=== PATIENT | male | born 1955 | race Caucasian/White ===

== ENCOUNTER 2020-10-26 10:44 | Outpatient (REF) | payer MEDICARE, SELFPAY ==
[2020-10-26 11:09] LABS: MANUAL DIFF FLAG NO
[2020-10-26 11:13] LABS: Basophils Absolute Auto 0.1 X10*3/uL (0.0-0.2); Basophils Percent Auto 0.7 % (0-2); Eosinophils Absolute Auto 0.2 X10*3/uL (0.0-0.4); Eosinophils Percent Auto 2.2 % (0-4); Hematocrit 49.2 % (42-52); Hemoglobin 16.9 g/dl (14.0-18.0); Imm Gran Abs Auto 0.02 X10*3/uL (0.00-0.03); Imm Gran Pct Auto 0.2 % (0.0-0.4); Lymphocytes Percent Auto 33.9 % (20-40); Mean Corpuscular HGB Conc 34.3 g/dl (31.0-36.0); Mean Corpuscular Hemoglobin 31.9 pg (27.0-33.0); Mean Platelet Volume 10.6 fL (9.4-12.4); Monocytes Absolute Auto 0.7 X10*3/uL (0.1-1.2); Monocytes Percent Auto 7.6 % (2-11); Neutrophils Percent Auto 55.4 % (45-73); Platelet Count 197 X10*3/uL (160-400); Red Blood Count 5.29 X10*6/uL (4.60-5.80); Red Cell Distribution Width 12.4 % (11.0-16.0)
[2020-10-26 11:27] LABS: Estimated Average Glucose 126 mg/dL
[2020-10-26 12:10] LABS: Alanine Aminotransferase 37 U/L (0-40); Albumin Level 4.5 g/dL (3.5-5.0); Alkaline Phosphatase 85 U/L (39-117); Anion Gap 13 (12-20); Aspartate Amino Transferase 33 U/L (5-37); Bilirubin Total 0.6 mg/dL (0.0-1.0); Blood Urea Nitrogen 13 mg/dL (9-16); Calcium 9.3 mg/dL (8.4-10.2); Carbon Dioxide 25 mmol/L (22-29); Chloride 104 mmol/L (96-108); Cholesterol 162 mg/dL; Estimated Glomerular Filt Rate > 60; Glucose Fasting 110 mg/dL (60-99); HDL Cholesterol 31 mg/dL; LDL Cholesterol Calculated 91 mg/dl; Potassium 4.5 mmol/L (3.3-5.1); Sodium 137 mmol/L (135-145); Total Protein 6.9 g/dL (6.5-8.0); Triglycerides 201 mg/dL
[2020-10-26 13:24] LABS: Prostate Specific Antigen 0.43 ng/mL (<0.05-4.0)
[2020-10-26 13:36] LABS: Glucose Urine UA NEG (NEG); Leukocyte Esterase Urine NEG (NEG); Nitrite Urine NEG (NEG); PH 5.5 (5.0-8.0); Specific Gravity - Urine >= 1.030 (1.005-1.025); Urine Blood TRACE (NEG); Urine Ketones NEG (NEG); Urine Protein NEG (NEG-TRACE)
[2020-10-26 13:45] LABS: Appearance Urine CLEAR; Color Urine YELLOW
[2020-10-26 13:57] LABS: Creatinine Urine 212.46 mg/dL; Microalbum/Creatinine Ratio Ur 30.1 ug/mg cr
[2020-10-26 14:08] LABS: Mucus Urine TRACE /LPF; RBC Urine 0-2 /HPF (0); Squamous Epithelial Cell Urine TRACE /LPF; WBC Urine 0 /HPF (0-4)
== END 2020-10-26 10:45 | disposition home or self-care (01) ==
LOC: HO.10HDL 10:44
PROVIDERS: Visit Provider Internal Medicine
DX: Z00.00 Encounter for general adult medical examination without abnormal findings (principal); I10 Essential (primary) hypertension; E78.00 Pure hypercholesterolemia, unspecified; R73.03 Prediabetes
CPT/HCPCS: 36415; 80053; 80061; 81001; 82043; 83036; 84153; 85025

== ENCOUNTER 2021-10-04 09:44 | Outpatient (REF) | payer MEDICARE, SELFPAY ==
[2021-10-04 10:54] LABS: Estimated Average Glucose 134 mg/dL; Hemoglobin A1c % 6.3 %
[2021-10-04 11:06] LABS: Anion Gap 12 (12-20); Blood Urea Nitrogen 10 mg/dL (9-16); Calcium 9.5 mg/dL (8.4-10.2); Carbon Dioxide 28 mmol/L (22-29); Chloride 103 mmol/L (96-108); Estimated Glomerular Filt Rate > 60; Glucose Fasting 134 mg/dL (60-99); Potassium 4.3 mmol/L (3.3-5.1); Sodium 139 mmol/L (135-145)
== END 2021-10-04 09:45 | disposition home or self-care (01) ==
LOC: HO.10HDL 09:44
PROVIDERS: Visit Provider Internal Medicine
DX: I10 Essential (primary) hypertension (principal); R73.03 Prediabetes
CPT/HCPCS: 36415; 80048; 83036

== ENCOUNTER 2023-06-17 10:20 | Outpatient (REF) | payer MEDICARE, SELFPAY ==
[2023-06-17 10:43] LABS: MANUAL DIFF FLAG NO
[2023-06-17 10:48] LABS: Basophils Absolute Auto 0.1 X10*3/uL (0.0-0.2); Basophils Percent Auto 0.7 % (0-2); Eosinophils Absolute Auto 0.2 X10*3/uL (0.0-0.4); Imm Gran Abs Auto 0.02 X10*3/uL (0.00-0.03); Imm Gran Pct Auto 0.2 % (0.0-0.4); Lymphocytes Percent Auto 25.2 % (20-40); Mean Corpuscular HGB Conc 33.3 g/dl (31.0-36.0); Mean Corpuscular Hemoglobin 30.9 pg (27.0-33.0); Mean Corpuscular Volume 92.6 fL (80.0-98.0); Mean Platelet Volume 10.1 fL (9.4-12.4); Monocytes Absolute Auto 0.6 X10*3/uL (0.1-1.2); Monocytes Percent Auto 7.8 % (2-11); Neutrophils Absolute Auto 5.1 x10*3/uL (2.0-8.3); Neutrophils Percent Auto 63.1 % (45-73); Platelet Count 175 X10*3/uL (160-400); Red Blood Count 5.51 X10*6/uL (4.60-5.80); White Blood Count 8.1 X10*3/uL (4.8-10.8)
[2023-06-17 11:02] LABS: Estimated Average Glucose 103 mg/dL; Hemoglobin A1c % 5.2 % (<6.0)
[2023-06-17 12:07] LABS: Alanine Aminotransferase 54 U/L (0-40); Albumin Level 3.2 g/dL (3.5-5.0); Alkaline Phosphatase 422 U/L (39-117); Anion Gap 12 (12-20); Aspartate Amino Transferase 116 U/L (5-37); Bilirubin Total 1.2 mg/dL (0.0-1.0); Blood Urea Nitrogen 11 mg/dL (9-16); Carbon Dioxide 22 mmol/L (22-29); Chloride 108 mmol/L (96-108); Cholesterol 150 mg/dL (<200); Estimated Glomerular Filt Rate > 60; Glucose Fasting 106 mg/dL (60-99); HDL Cholesterol 24 mg/dL (>40); LDL Cholesterol Calculated 95 mg/dL (<100); Potassium 4.2 mmol/L (3.3-5.1); Sodium 138 mmol/L (135-145); Total Protein 7.6 g/dL (6.5-8.0); Triglycerides 159 mg/dL (<150)
[2023-06-17 12:22] LABS: Prostate Specific Antigen Scr 0.46 ng/mL (<0.05-4.0)
[2023-06-17 13:12] LABS: Appearance Urine Turbid; Color Urine Dark Yellow; Glucose Urine UA Negative (Negative); Leukocyte Esterase Urine Trace (Negative); Nitrite Urine Negative (Negative); UMIC TRIGGER UA YES; Urine Blood Negative (Negative); Urine Ketones Negative (Negative); Urine Protein Trace mg/dL (Neg-Trace)
[2023-06-17 13:16] LABS: Bacteria Urine None Seen (None Seen); Squamous Epithelial Cell Urine 0-2 /HPF (0-2); WBC Urine 0-5 /HPF (0-5)
[2023-06-17 14:00] LABS: Creatinine Urine 208.47 mg/dL; Microalbum/Creatinine Ratio Ur 10.5 ug/mg cr (<30)
== END 2023-06-17 10:21 | disposition home or self-care (01) ==
LOC: HO.10HDL 10:20
PROVIDERS: Visit Provider Internal Medicine
DX: Z12.5 Encounter for screening for malignant neoplasm of prostate (principal); I10 Essential (primary) hypertension; E78.00 Pure hypercholesterolemia, unspecified; R73.03 Prediabetes
CPT/HCPCS: 36415; 80053; 80061; 81001; 82043; 82570; 83036; 84153; 85025

== ENCOUNTER 2023-06-26 12:01 | Outpatient (REF) | payer MEDICARE, SELFPAY ==
[2023-06-26 14:12] LABS: Alanine Aminotransferase 48 U/L (0-40); Albumin Level 3.3 g/dL (3.5-5.0); Alkaline Phosphatase 485 U/L (39-117); Aspartate Amino Transferase 123 U/L (5-37); Bilirubin Direct 0.9 mg/dL (0.0-0.5); Bilirubin Total 1.8 mg/dL (0.0-1.0); Total Protein 7.9 g/dL (6.5-8.0)
== END 2023-06-26 12:02 | disposition home or self-care (01) ==
LOC: HO.10HDL 12:01
PROVIDERS: Visit Provider Internal Medicine
DX: R79.89 Other specified abnormal findings of blood chemistry (principal)
CPT/HCPCS: 36415; 80076

== ENCOUNTER 2023-07-08 09:12 | Outpatient (REF) | payer MEDICARE, SELFPAY ==
--- NOTE | ~2023-07-08 | US_ITS ---
EXAMINATION: US ABDOMEN COMPLETE CLINICAL INFORMATION: Abnormal LFTs. COMPARISON: None available. TECHNIQUE: Real-time imaging of the abdominal viscera. Limited visualization due to bowel gas. FINDINGS: PANCREAS: Limited visualization of pancreatic tail and head. Imaged portion of pancreatic body is unremarkable. ABDOMINAL AORTA: Limited visualization. INFERIOR VENA CAVA: Visualized portions are normal. LIVER: Hepatic echotexture is coarse and heterogeneous with nodular contour suggestive of hepatocellular disease, characteristic of cirrhosis. There are subtle areas of increased echogenicity in the right hepatic lobe with ill-defined margins difficult to document for the snuff drier. Liver measures 15.1 cm. GALLBLADDER: Mild gallbladder wall thickening of 0.4 cm. No gallstones identified. COMMON BILE DUCT: Poorly visualized. RIGHT KIDNEY: A 1.9 x 2.0 x 2.1 cm isoechoic area in the right renal midpole could represent a mass versus hypertrophied column of Yunior. No hydronephrosis. No renal calculi. Limited visualization. The kidney measures 11.1 cm in maximum dimension. LEFT KIDNEY: No hydronephrosis. No renal calculi. Limited visualization The kidney measures 11.1 cm in maximum dimension. SPLEEN: The spleen measures 17.5 cm in maximum dimension. Splenomegaly. FREE FLUID: Small amount of ascites. US/US abdomen complete IMPRESSION: 1. Hepatic echotexture is coarse and heterogeneous with nodular contour suggestive of hepatocellular disease, characteristic of cirrhosis. Subtle areas of increased echogenicity in the right hepatic lobe with ill-defined margins difficult to document for the snuff drier, possibly representing a mass. MRI recommended for further evaluation. 2. Mild gallbladder wall thickening of 0.4 cm. No gallstones identified. 3. A 2.1 cm isoechoic area in the right renal midpole could represent a mass versus hypertrophied column of Yunior. CT scan or MRI employing renal mass protocol with contrast recommended for further evaluation. 4. Splenomegaly. 5. Small amount of ascites.
== END 2023-07-08 09:13 | disposition home or self-care (01) ==
LOC: HO.US 09:12
PROVIDERS: PCP Internal Medicine; Visit Provider Internal Medicine
DX: R94.5 Abnormal results of liver function studies (principal)
CPT/HCPCS: 76700

== ENCOUNTER 2023-08-05 10:57 | Day surgery (SDC) | payer MEDICARE, SELFPAY ==
[2023-07-30 13:56] VITALS: BMI 29.3
--- NOTE | 2023-08-04 08:40 | HO.ANESPROP2 ---
Documented by User: Kenia Deutsch NP 08/04/23 08:41 HPI - Anesthesia Eval Consult details Narrative: 68yo M for [facility] Past Medical History Medical History Hepatitis Elevated cholesterol HTN (hypertension) Surgical History Surgical History Hx of appendectomy H/O colonoscopy Social History Patient Tobacco Use Status: Former Tobacco user Quit Date: 1 year ago Use of substances other than those prescribed or required for medical reasons: No Are you DNR?: No Advance Directives: No Advance Directives Information Provided: Yes Meds Allergies Allergy/AdvReac Type Severity Reaction Status Date / Time No Known Allergies Allergy Verified 07/30/23 13:55 Home Medications Medication Instructions Recorded Confirmed Last Taken Type atorvastatin 10 mg tablet 10 mg PO DAILY 07/30/23 07/30/23 Unknown History lisinopril 10 mg tablet 10 mg PO DAILY 07/30/23 07/30/23 Unknown History Exam Height,Weight and Vital Signs: Height 5 ft 8 in Weight 87.543 kg Pertinent Lab Results Pertinent Lab Results: Laboratory Tests 06/17/23 10:30 WBC 8.1 Hgb 17.0 Hct 51.0 Plt Count 175 Sodium 138 Potassium 4.2 Chloride 108 Carbon Dioxide 22 BUN 11 Creatinine 0.69 Assessment and Plan Assessment Anesthesia Assessment: Chart Reviewed Documented by User: Karoline Alejandro MD 08/05/23 11:39 [facility] Past Medical History Medical History Hepatitis Elevated cholesterol HTN (hypertension) Surgical History Surgical History Hx of appendectomy H/O colonoscopy History of Problems with Anesthesia: No Social History Patient Tobacco Use Status: Former Tobacco user Quit Date: 1 year ago Use of substances other than those prescribed or required for medical reasons: No Are you DNR?: No Advance Directives: No Advance Directives Information Provided: Yes Meds Allergies Allergy/AdvReac Type Severity Reaction Status Date / Time No Known Allergies Allergy Verified 07/30/23 13:55 Home Medications Medication Instructions Recorded Confirmed Last Taken Type atorvastatin 10 mg tablet 10 mg PO DAILY 07/30/23 07/30/23 Unknown History lisinopril 10 mg tablet 10 mg PO DAILY 07/30/23 07/30/23 Unknown History Exam Airway Mallampati Class: III TM Dist: >3cm Neck ROM: Full Loose/Missing/Broken Teeth: No Heart: RRR Lungs: CTA Assessment and Plan Assessment Anesthesia Assessment: Anesthesia Plan Discussed and Chart Reviewed Final Anesthetic Review History of Problems with Anesthesia: No NPO: Yes ASA Class: II Final Preanesthetic Review: Meds/Allgs Chart Reviewed, Consent Obtained/Reviewed and Anes Risks/Benef Reviewed Patient Risk: Low Procedure Risk: Low Anesthetic Plan Anesthetic Plan: MAC: Disposition: Standard PACU
[2023-08-05 11:09] VITALS: BMI 29.8
[2023-08-05 11:10] VITALS: BMI 29.8
--- NOTE | 2023-08-05 11:10 | P.HPSUR_ITS ---
Pre-Procedural Eval Section A Date of Service: 08/05/23 Section B Chief Complaint: Encounter for screening for malignant neoplasm of Details of Present Illness: see H&P no changes Relevant Family History (Specify if Yes): No Relevant Social History: None Present Medications: see Short Stay Collaborative assessment Medical History: No relevant PMH History of Previous Operations: No relevant previous surgery Allergies: Allergies Allergy/AdvReac Type Severity Reaction Status Date / Time No Known Allergies Allergy Verified 07/30/23 13:55 Review of Systems Sugical H&P ROS: Negative: Constitution, Cardiovascular, Respiratory, Neurolo gical, Psychiatric, Hem-Onc, Allergic/Immunologic, Gastrointestinal, Genitourinary, Musculoskeletal, Integumentary, Endocrine and Eyes/Ears/Nose/Throat Exam Surgical H&P Exam: Normal: HEENT, Normal: Heart, Normal: Lungs, Normal: Extremities, Normal: Abdomen, Normal: Skin and Normal: Neurological Plan Diagnosis/Plan: Unchanged I have reviewed the history and physical and performed a pertinent physical examination on my patient. No changes have occurred unless specified. Time Spent With Patient Time: Total time managing care of this patient today ____ minutes.
[2023-08-05 11:22] VITALS: BP 170/105; PULSE 105; RESP 16; TEMP 36.5; O2SAT 95
[2023-08-05] MEDS: Lactated Ringers 1,000 ML 100 ML IVCONT (11:26)
[2023-08-05 11:27] VITALS: BP 157/98; PULSE 99
--- NOTE | 2023-08-05 12:04 | PM.OP ---
Brief Operative Note Date of Service: 08/05/23 Pre-op diagnosis: screening Post-op diagnosis: same Procedure: colonoscopy Surgeon: Sony Brown MD Anesthesia: MAC Was an Inspector Quality Assurance used for this Procedure?: No Estimated blood loss (mL): 2 Pathology: other Condition: stable Disposition: PACU
[2023-08-05 12:08] VITALS: BP 149/89; PULSE 94; RESP 16; TEMP 36.6; O2SAT 97
[2023-08-05 12:23] VITALS: BP 149/94; PULSE 80; RESP 18; TEMP 36.6; O2SAT 97
--- NOTE | 2023-08-05 12:36 | OP_ITS ---
DATE OF SERVICE: 08/05/2023 SURGEON: Sony Brown MD INDICATIONS: Colon cancer screening and prior history of adenomatous colon polyps. PREOPERATIVE DIAGNOSIS: POSTOPERATIVE DIAGNOSIS: PROCEDURE PERFORMED: Colonoscopy to the terminal ileum with snare polypectomy and biopsy. ESTIMATED BLOOD LOSS: COMPLICATIONS: ANESTHESIA: Monitored anesthesia care. ASSISTANTS: SPECIMENS: DESCRIPTION OF PROCEDURE: The history and physical was performed. The risks and benefits of the procedure were explained to the patient and informed consent was obtained. The patient was placed in the left lateral decubitus position. A digital rectal exam was performed and was found to be normal. The Olympus pediatric video colonoscope was introduced into the rectum and advanced to the cecum. The cecum was identified by transillumination, palpation, and identification of ileocecal valve. Examination was performed. The scope was removed. He tolerated the procedure well and was returned to the recovery area in stable condition. FINDINGS: The terminal ileum was examined and appeared normal. The visualized colonic mucosa was normal. There was mild sigmoid diverticulosis. There was some liquid stool coating the mucosa which was washed and suctioned. Multiple colonic polyps were removed using combination of snare and biopsy forceps. These were located at 80 cm, 70 cm, 60 cm, 50 cm, 45 and 35 cm. All were less than 10 mm.. RECOMMENDATION: Follow up the biopsy results. MD MOE Chiu/REGULO / [id number] MTDD
== END 2023-08-05 13:07 | disposition home or self-care (01) ==
PROVIDERS: PCP Internal Medicine; Visit Provider Internal Medicine Gastroenterology
PROC: 0DJD8ZZ Inspection of Lower Intestinal Tract, Via Natural or Artificial Opening Endoscopic (ICD-10-PCS; CPT 45378; principal; 2023-08-05 12:00)
DX: Z12.11 Encounter for screening for malignant neoplasm of colon (principal); Z86.010 Personal history of colon polyps; D12.4 Benign neoplasm of descending colon; D12.5 Benign neoplasm of sigmoid colon; K57.30 Diverticulosis of large intestine without perforation or abscess without bleeding; I10 Essential (primary) hypertension; E78.00 Pure hypercholesterolemia, unspecified; Z79.899 Other long term (current) drug therapy; Z87.891 Personal history of nicotine dependence
CPT/HCPCS: 45385; 45380; 88305; J1920; J2704

== ENCOUNTER 2023-08-13 10:42 | Outpatient (REF) | payer MEDICARE, SELFPAY ==
[2023-08-13 13:14] LABS: MANUAL DIFF FLAG NO
[2023-08-13 13:39] LABS: INTERNATIONAL NORM RATIO 1.1 (0.9-1.1)
[2023-08-13 13:40] LABS: Basophils Absolute Auto 0.1 X10*3/uL (0.0-0.2); Basophils Percent Auto 1.1 % (0-2); Eosinophils Absolute Auto 0.2 X10*3/uL (0.0-0.4); Eosinophils Percent Auto 2.6 % (0-4); Hematocrit 53.6 % (42.0-52.0); Hemoglobin 17.3 g/dl (14.0-18.0); Imm Gran Abs Auto 0.02 X10*3/uL (0.00-0.03); Imm Gran Pct Auto 0.2 % (0.0-0.4); Lymphocytes Absolute Auto 1.8 X10*3/uL (1.2-4.9); Lymphocytes Percent Auto 21.8 % (20-40); Mean Corpuscular HGB Conc 32.3 g/dl (31.0-36.0); Mean Corpuscular Hemoglobin 29.3 pg (27.0-33.0); Mean Corpuscular Volume 90.8 fL (80.0-98.0); Mean Platelet Volume 10.4 fL (9.4-12.4); Monocytes Absolute Auto 0.7 X10*3/uL (0.1-1.2); Monocytes Percent Auto 8.2 % (2-11); Neutrophils Absolute Auto 5.4 x10*3/uL (2.0-8.3); Neutrophils Percent Auto 66.1 % (45-73); Platelet Count 193 X10*3/uL (160-400); Red Cell Distribution Width 18.6 % (11.0-16.0); White Blood Count 8.2 X10*3/uL (4.8-10.8)
[2023-08-13 13:42] LABS: Partial Thromboplastin Time 43.4 SEC (26.0-36.4)
[2023-08-13 13:56] LABS: Gamma Glutamyl Transpeptidase 382 U/L (11-51)
== END 2023-08-13 10:43 | disposition home or self-care (01) ==
LOC: HO.10HDL 10:42
PROVIDERS: Visit Provider Internal Medicine Medical Oncology
DX: R16.0 Hepatomegaly, not elsewhere classified (principal); C80.1 Malignant (primary) neoplasm, unspecified; C78.7 Secondary malignant neoplasm of liver and intrahepatic bile duct; K63.89 Other specified diseases of intestine
CPT/HCPCS: 36415; 82105; 82378; 82977; 85025; 85610; 85730

== ENCOUNTER 2023-08-26 11:47 | Outpatient (REF) | payer MEDICARE, SELFPAY ==
[2023-08-26 13:36] LABS: INTERNATIONAL NORM RATIO 1.1 (0.9-1.1); Prothrombin Time 13.8 SEC (11.1-13.3)
[2023-08-26 13:38] LABS: Partial Thromboplastin Time 44.4 SEC (26.0-36.4)
[2023-08-26 13:49] LABS: Alanine Aminotransferase 50 U/L (0-40); Albumin Level 2.6 g/dL (3.5-5.0); Alkaline Phosphatase 628 U/L (39-117); Anion Gap 10 (12-20); Aspartate Amino Transferase 135 U/L (5-37); Blood Urea Nitrogen 14 mg/dL (9-16); Calcium 8.8 mg/dL (8.4-10.2); Carbon Dioxide 27 mmol/L (22-29); Chloride 103 mmol/L (96-108); Estimated Glomerular Filt Rate > 60; Glucose Random 114 mg/dL (60-115); Potassium 4.6 mmol/L (3.3-5.1); Sodium 135 mmol/L (135-145); Total Protein 7.7 g/dL (6.5-8.0)
== END 2023-08-26 11:48 | disposition home or self-care (01) ==
LOC: HO.10HDL 11:47
PROVIDERS: Visit Provider Internal Medicine Medical Oncology
DX: R16.1 Splenomegaly, not elsewhere classified (principal); R16.0 Hepatomegaly, not elsewhere classified
CPT/HCPCS: 36415; 80053; 85610; 85730

== ENCOUNTER 2023-08-27 14:31 | Outpatient (REF) | payer MEDICARE, SELFPAY ==
--- NOTE | ~2023-08-27 | CT_ITS ---
EXAMINATION: CT CHEST WITH CONTRAST CLINICAL INFORMATION: Restaging hepatocellular disease COMPARISON: Ultrasound 07/09/2023 TECHNIQUE: Multidetector volumetric CT imaging of the chest was obtained after the administration of 100 mL of Omnipaque 350 intravenous contrast without immediate adverse reactions. Axial MIP volume rendering provided. Sagittal and coronal reformatted images were obtained. This CT examination was performed using dose optimization techniques as appropriate, variously including the following: *Automated exposure control *Adjustment of mA and/or kV according to patient size (this includes techniques or standardized protocols for targeted exams where dose is matched to indication/reason for exam; i.e. extremities or head) *Use of iterative reconstruction technique DLP: 158 mGy-cm FINDINGS: PROMOTIONS OFFICER: Expanded lungs with elevated right hemidiaphragm. LUNGS: The lungs are well-expanded and clear of acute pneumonic process. Mild atelectatic changes are seen in right lower lobe and lingula. There is a 2 mm calcification seen in the right upper lobe likely granuloma on axial image 19/6. MEDIASTINUM: Thyroid lobes are symmetrical and normal. The central trachea and the bronchi are widely patent. Multiple small mediastinal lymph nodes are visualized. Heart size and the great vessels are normal caliber. There is no pericardial effusion. Trace coronary artery calcification seen. PLEURA: There is right basilar pleural thickening and/or tiny effusion. AXILLA: No lymphadenopathy. UPPER ABDOMEN: The liver is heterogeneous, lobulated and enlarged consistent with cirrhosis. There are large areas of hypodense areas scattered with normal hepatic parenchyma in the right hepatic lobe simulating hepatic mass. No intrahepatic ductal dilatation seen. The spleen is borderline enlarged however not fully included in the scan.. Bilateral adrenal glands are normal. OSSEOUS STRUCTURES: No aggressive lytic or sclerotic process seen. Mild spondylosis noted mid and lower dorsal spine. CT/CT chest w IV con IMPRESSION: 1. No acute process seen in the chest. 2. Right basilar pleural thickening and/or tiny effusion. 3. Cirrhotic liver with large areas of hypodensity in the right hepatic lobe likely fatty infiltration simulating hepatic mass. No intrahepatic ductal dilatation seen. 4. Borderline splenomegaly. Fleischner guidelines were followed.
[2023-08-27] MEDS: iohexoL 350 MG/ML 100 ML INFUS..BTL IV (15:28)
== END 2023-08-27 14:32 | disposition home or self-care (01) ==
LOC: HO.CT 14:31
PROVIDERS: PCP Internal Medicine Medical Oncology; Visit Provider Internal Medicine Medical Oncology
DX: R16.0 Hepatomegaly, not elsewhere classified (principal); R18.0 Malignant ascites
CPT/HCPCS: 71260; Q9967

== ENCOUNTER 2023-09-03 12:48 | Day surgery (SDC) | payer MEDICARE, SELFPAY ==
[2023-09-03] VITALS (10 sets, daily range): BP systolic 120–144; BP diastolic 73–93; PULSE 82–102; RESP 14–20; TEMP 36.8–37.2; O2SAT 91–100; BMI 31.3
--- NOTE | ~2023-09-03 | US_ITS ---
PROCEDURE: ULTRASOUND GUIDANCE FOR NEEDLE PLACEMENT ULTRASOUND-GUIDED PARACENTESIS CLINICAL INFORMATION: Liver masses, ascites COMPARISON: MRI outside institution 07/30/2023 TECHNIQUE FINDINGS: Patient was placed supine in the ultrasound procedure table. Preliminary ultrasound demonstrates large volume ascites. The liver is heterogeneous with masslike area at the hepatic dome in concordance with prior cross-sectional imaging. Sites were selected in the right lower quadrant as well as the upper abdomen, marked and sterilely prepped and draped. 1% lidocaine was administered for local anesthesia. The paracentesis was performed first. A 5 [place] [employer] centesis needle was advanced into the ascites via a right lower quadrant approach under direct ultrasound guidance. The catheter was at attached to suction canisters. Approximately 7.3 L in total was drained. While the ascites was actively being drained, the segment 8 mass was accessed with a 17-gauge coaxial needle. 2 18-gauge core needle biopsy specimens were obtained and placed in formalin. The coaxial needle was withdrawn while injecting a Gelfoam slurry. When the paracentesis was completely, the Yueh centesis catheter was removed. Hemostasis was achieved at both sites with manual compression and sterile dressings were applied. Post procedure images demonstrate trace residual ascites. No evidence of bleeding or other complication at the biopsy site. Patient tolerated procedure well. US/US paracentesis abd w/image IMPRESSION: 1. Ultrasound guided paracentesis. 7.3 L drained 2. Ultrasound guided biopsy of masslike region at the hepatic dome.
--- NOTE | ~2023-09-03 | US_ITS ---
PROCEDURE: ULTRASOUND GUIDANCE FOR NEEDLE PLACEMENT ULTRASOUND-GUIDED PARACENTESIS CLINICAL INFORMATION: Liver masses, ascites COMPARISON: MRI outside institution 07/30/2023 TECHNIQUE FINDINGS: Patient was placed supine in the ultrasound procedure table. Preliminary ultrasound demonstrates large volume ascites. The liver is heterogeneous with masslike area at the hepatic dome in concordance with prior cross-sectional imaging. Sites were selected in the right lower quadrant as well as the upper abdomen, marked and sterilely prepped and draped. 1% lidocaine was administered for local anesthesia. The paracentesis was performed first. A 5 [place] [employer] centesis needle was advanced into the ascites via a right lower quadrant approach under direct ultrasound guidance. The catheter was at attached to suction canisters. Approximately 7.3 L in total was drained. While the ascites was actively being drained, the segment 8 mass was accessed with a 17-gauge coaxial needle. 2 18-gauge core needle biopsy specimens were obtained and placed in formalin. The coaxial needle was withdrawn while injecting a Gelfoam slurry. When the paracentesis was completely, the Yueh centesis catheter was removed. Hemostasis was achieved at both sites with manual compression and sterile dressings were applied. Post procedure images demonstrate trace residual ascites. No evidence of bleeding or other complication at the biopsy site. Patient tolerated procedure well. US/US biopsy liver IMPRESSION: 1. Ultrasound guided paracentesis. 7.3 L drained 2. Ultrasound guided biopsy of masslike region at the hepatic dome.
--- NOTE | 2023-09-03 13:25 | PC.NURSE ---
last drank 4ounces of water at 1200
[2023-09-03] MEDS: Lidocaine HCl 1 % MPF 5 ML VIAL 10 ML SUBCUT (15:39)
== END 2023-09-03 17:30 | disposition home or self-care (01) ==
PROVIDERS: PCP Internal Medicine; Visit Provider Student in an Organized Health Care Education/Training Program
DX: R16.0 Hepatomegaly, not elsewhere classified (principal); C22.0 Liver cell carcinoma; R18.0 Malignant ascites; K74.60 Unspecified cirrhosis of liver; R16.1 Splenomegaly, not elsewhere classified; I10 Essential (primary) hypertension; R73.03 Prediabetes; I85.00 Esophageal varices without bleeding; Z79.899 Other long term (current) drug therapy
CPT/HCPCS: 47000; 49083; 76942; 86850; 86900; 86901; 88112; 88305; 88307; 88313; 88341; 88342; P9047

== ENCOUNTER → 2023-09-03 14:27 | Outpatient (BNV) | payer MEDICARE, SELFPAY | PROVIDERS: PCP Internal Medicine; Visit Provider Student in an Organized Health Care Education/Training Program | DX: R16.0 Hepatomegaly, not elsewhere classified (principal) | CPT/HCPCS: 47000; 49083; 76942 ==

== ENCOUNTER 2023-10-15 14:34 | Inpatient (IN) | payer MEDICARE, SELFPAY ==
[2023-10-15 14:39] VITALS: BP 124/80; PULSE 100; O2SAT 98
[2023-10-15 14:44] VITALS: BP 135/75; PULSE 84; RESP 16; TEMP 37; O2SAT 98; BMI 28.0
--- NOTE | 2023-10-15 14:49 | ECG_ITS ---
Test Reason : WEAKNESS Blood Pressure : / mmHG Vent. Rate : 094 BPM Atrial Rate : 094 BPM P-R Int : 176 ms QRS Dur : 078 ms QT Int : 344 ms P-R-T Axes : 076 082 038 degrees QTc Int : 430 ms Artifact in tracing Normal sinus rhythm Low voltage QRS Borderline ECG When compared with ECG of 17-MAY-2003 21:28, No significant changes seen Referred By: Elizabeth Smith Electronically Signed By:YOLIE LEAVITT
--- NOTE | 2023-10-15 14:51 | ED.GENADULT ---
HPI - [facility] Adult General Chief complaint: Abdominal Pain Stated complaint: WEAK,H/O LIVER CA,FAILURE TO THRIVE PER EMS Time Seen by Provider: 10/15/23 14:40 Source: patient and family Mode of arrival: EMS Limitations: other History of Present Illness HPI narrative: Patient comes to the emergency room by ambulance from home. Patient comes accompanied by his son. Patient was recently diagnosed with liver cancer approximately 3 months ago. According to the patient's son, they had an appointment [facility]. However, patient was too weak to undergo any procedures or treatment. At [facility], they were planning to do IV treatment, likely chemo according to the patient's son. However, patient keeps deteriorating. Patient states that they were at [facility] about a week ago, patient was able to walk. However, over the last 2 days, patient has been too weak to leaving walk. Today, patient somehow managed to get into the bathroom, but patient sat down and could not get up and was in the bathroom for over 2 hours. Seems that patient slid down the toilet due to weakness, states he did not hit his head or lost consciousness. Patient's son states that they have been working on a healthcare proxy form but it has not available yet. Seems that at this time, patient's is helping the patient make medical decisions. Patient's is on the way. According to the son, they have considered hospice due to the rapid deterioration. Also, the son states that they noted that for the last 2 days, patient has had dark bowel movements. But today it was bright blood per rectum. Patient is awake and alert, states that he feels weak but otherwise feels well. Patient's son states that his father is notorious for minimizing his symptoms Related Data Home Medications Medication Instructions Recorded Confirmed atorvastatin 10 mg tablet 10 mg PO DAILY 07/30/23 07/30/23 lisinopril 10 mg tablet 10 mg PO DAILY 07/30/23 07/30/23 Allergies Allergy/AdvReac Type Severity Reaction Status Date / Time No Known Allergies Allergy Verified 07/30/23 13:55 Review of Systems Review of Systems: Constitutional : No Weight loss, No Fever, No Chills, No Night Sweats, fatigue, generalized malaise, weakness ENT/Mouth : No Hearing loss, No Ear Pain, No Nasal Congestion, No Sinus Pain, No Hoarseness, No sore throat, No Rhinorrhea, No Swallowing Difficulty Eyes: No Eye Pain, No Swelling, No Redness, No Foreign Body, No Discharge, No Vision Changes Cardiovascular : No Chest Pain, No SOB, No Dyspnea on Exertion, No Orthopnea, No Edema, No Palpitations Respiratory : No Cough, No Sputum, No Wheezing, No Smoke Exposure, No Dyspnea Gastrointestinal : No Nausea, No Vomiting, No Diarrhea, No Constipation, No abdominal Pain, bright red rectal bleeding Genitourinary : no irregular bleeding, No Dysuria, No Urinary Frequency, No Hematuria, No Urinary Incontinence, No Urgency, No Flank Pain, No Urinary Flow Changes Musculoskeletal : No joint pain, No Myalgias, No Joint Swelling Skin : No Skin Lesions, No rash Neuro : Significant overall Weakness, No Numbness, No Paresthesias, No Loss of Consciousness, No Dizziness, No Headache Psych : No Anxiety/Panic, No Depression, No SI/HI/AH/VH, No Social Issues, Heme/Lymph: No Bruising, No Bleeding,No Lymphadenopathy Endocrine : No Polyuria, No Polydipsia, No Temperature Intolerance [facility] Past Medical History Medical History History of simple renal cyst Hx of hepatic disease Hx of cirrhosis Hepatitis Elevated cholesterol HTN (hypertension) Surgical History Hx of appendectomy H/O colonoscopy Social History Social History Patient Tobacco Use Status: Former Tobacco user Quit Date: 1 year ago Advance Directives: No Advance Directives Information Provided: Yes Physical Exam ED Vital Signs: Vital Signs - 24 hr 10/15/23 14:44 Temperature 98.6 F Pulse Rate 84 Respiratory Rate 16 Blood Pressure 135/75 Pulse Oximetry 98 Oxygen Delivery Method Room Air BMI result Body Mass Index 28.0 Const Other: Appearance: Alert. Oriented x1, ill-appearing, weak Eyes: Pupils equal, round and reactive to light. Icterus present ENT: Pharynx normal. Neck: Normal inspection. Neck supple. No lymph nodes noted. No crepitus CVS: Normal heart rate and rhythm. Pulses normal. Normal S1 and S2 Respiratory: No respiratory distress. Breath sounds normal. No Wheezing. No rales Abdomen: Soft , distended, not painful Skin: Skin warm and dry. Normal skin color. Normal skin turgor. Extremities: No lower extremity edema. No Lacerations. No Rash Neuro: No motor deficit. No sensory deficit. Moving all extremities. No slurred speech. CN 2 through 12 grossly intact Psych: calm, cooperative, normal affect Course Course Course Narrative: -all of patient's labs pending -per patient's family request, we will obtain a case management consult -I was able to obtain records from [facility] center at [facility]. According to the records, patient has history of advanced hepatocellular carcinoma with viruses. It was discussed with the patient to start atezolizmab and Avastin, but the team in [place] felt that the bleeding risk of this regimen would be too high. Also, in this visit it was noted the patient is very weak, they also discussed that darvalumab and tremelimumab will make this regimen very difficult. Also, single agent with nivolumab was discussed. The single agent treatment was supposed to start tomorrow. However, the family was made aware that patient has been deteriorating quickly, if he did, further treatment would not be a good idea to start. -unfortunately, patient did he deteriorated significantly -I discussed the labs with the patient's and 2 sons. I discussed with them acute treatment options, with intention of getting him stable enough for his cancer treatment versus DATA REVIEWER. The family, including patient's and 2 sons agree that the patient would not want to have aggressive treatment, and the best course of action at this time would be to make him comfort measures only. Our child welfare caseworker Cynthia was present during the conversation. Per patient's family's request, we will make patient comfortable. We will help them with the DATA REVIEWER/hospice care process, healthcare proxy and MOLDS form. -we will go ahead and start a morphine drip. Patient is awake, states that he feels okay. However, patient's and sons all agree that he will never say that he is in pain. Patient does look significantly uncomfortable. Medications Administered Discontinued Medications Generic Name Dose Route Start Last Admin Trade Name Freq PRN Reason Stop Dose Admin Sodium Chloride 1,000 mls @ 999 mls/hr 10/15/23 14:49 10/15/23 18:46 Ns IVCONT 10/15/23 15:49 Not Given .Q1H1M ONE Sodium Chloride 1,000 mls @ 999 mls/hr 10/15/23 17:04 10/15/23 18:46 Ns IVCONT 10/15/23 18:04 Not Given .Q1H1M ONE Sodium Bicarbonate 50 meq 10/15/23 17:04 10/15/23 18:46 Sodium Bicarbonate 8.4% 50 Meq/50 Ml Syringe IVPUSH 10/15/23 17:05 Not Given ONCE ONE Medical Decision Making Medical Decision Making MDM Narrative: -as mentioned above, I had a prolonged discussion with the patient and his family regarding his labs, prognosis. Patient and all family are agreeable to start the hospice process and to becomes DATA REVIEWER -I discussed the patient with the hospitalist team, patient being admitted Lab Data MDM Lab Attestation statement: I reviewed the patient's lab results. 10/15/23 15:32 10/15/23 15:32 Labs: Lab Results 10/15/23 10/15/23 10/15/23 Range/Units 15:30 15:31 15:32 WBC 9.9 (4.8-10.8) X10*3/uL RBC 5.93 H (4.60-5.80) X10*6/uL Hgb 17.3 (14.0-18.0) g/dl Hct 49.0 (42.0-52.0) % MCV 82.6 (80.0-98.0) fL MCH 29.2 (27.0-33.0) pg MCHC 35.3 (31.0-36.0) g/dl RDW 21.7 H (11.0-16.0) % Plt Count 216 (160-400) X10*3/uL MPV 9.9 (9.4-12.4) fL Immature Gran % (Auto) 0.4 (0.0-0.4) % Neut % (Auto) 89.8 H (45-73) % Lymph % (Auto) 5.1 L (20-40) % [place] % (Auto) 4.5 (2-11) % Eos % (Auto) 0.1 (0-4) % Baso % (Auto) 0.1 (0-2) % Lymph # (Auto) 0.5 L (1.2-4.9) X10*3/uL [place] # (Auto) 0.5 (0.1-1.2) X10*3/uL Eos # (Auto) 0.0 (0.0-0.4) X10*3/uL Baso # (Auto) 0.0 (0.0-0.2) X10*3/uL Abs Immat Gran (auto) 0.04 H (0.00-0.03) X10*3/uL Absolute Neuts (auto) 8.9 H (2.0-8.3) x10*3/uL Absolute Nucleated RBC 0.000 (0.0-0.012) X10*3/uL Nucleated RBC % (auto) 0.0 (0.0-0.2) /100WBC PT 15.8 H (11.1-13.3) SEC INR 1.3 H (0.9-1.1) APTT 48.1 H (26.0-36.8) SEC Sodium 135 (135-145) mmol/L Potassium 6.3 H* (3.3-5.1) mmol/L Chloride 106 (96-108) mmol/L Carbon Dioxide 10 L* D (22-29) mmol/L Anion Gap 25 H (12-20) BUN > 125 H (9-16) mg/dL Creatinine 10.35 H* (0.5-1.4) mg/dL Estim Creat Clear Calc 7.6 Estimated GFR 5 Random Glucose 102 (60-115) mg/dL Lactic Acid 2.9 H* (0.5-2.0) mmol/L Calcium 8.8 (8.4-10.2) mg/dL Magnesium 3.9 H* (1.6-2.6) mg/dL Total Bilirubin 2.0 H (0.0-1.0) mg/dL Direct Bilirubin 1.3 H (0.0-0.5) mg/dL AST 76 H (5-37) U/L ALT 50 H (0-40) U/L Alkaline Phosphatase 542 H (39-117) U/L Ammonia 97 H (13-55) umol/L Troponin I High Sens 27.0 (<3.5-35.0) ng/L B-Natriuretic Peptide 73 (<100) pg/mL Total Protein 6.6 (6.5-8.0) g/dL Albumin 2.2 L (3.5-5.0) g/dL Lipase 46 (8-78) U/L TSH 4.11 H (0.32-4.0) uIU/mL Free T4 0.81 (0.71-1.85) ng/dL COVID-19 (CIARRA) (Negative) COVID-19 Clin Com Influenza Type A (RADHA) Negative (Negative) Influenza Type B (RADHA) Negative (Negative) Influenza A & B Note See Note Blood Type Antibody Screen 10/15/23 Range/Units 15:33 WBC (4.8-10.8) X10*3/uL RBC (4.60-5.80) X10*6/uL Hgb (14.0-18.0) g/dl Hct (42.0-52.0) % MCV (80.0-98.0) fL MCH (27.0-33.0) pg MCHC (31.0-36.0) g/dl RDW (11.0-16.0) % Plt Count (160-400) X10*3/uL MPV (9.4-12.4) fL Immature Gran % (Auto) (0.0-0.4) % Neut % (Auto) (45-73) % Lymph % (Auto) (20-40) % Salinas % (Auto) (2-11) % Eos % (Auto) (0-4) % Baso % (Auto) (0-2) % Lymph # (Auto) (1.2-4.9) X10*3/uL [place] # (Auto) (0.1-1.2) X10*3/uL Eos # (Auto) (0.0-0.4) X10*3/uL Baso # (Auto) (0.0-0.2) X10*3/uL Abs Immat Gran (auto) (0.00-0.03) X10*3/uL Absolute Neuts (auto) (2.0-8.3) x10*3/uL Absolute Nucleated RBC (0.0-0.012) X10*3/uL Nucleated RBC % (auto) (0.0-0.2) /100WBC PT (11.1-13.3) SEC INR (0.9-1.1) APTT (26.0-36.8) SEC Sodium (135-145) mmol/L Potassium (3.3-5.1) mmol/L Chloride (96-108) mmol/L Carbon Dioxide (22-29) mmol/L Anion Gap (12-20) BUN (9-16) mg/dL Creatinine (0.5-1.4) mg/dL Estim Creat Clear Calc Estimated GFR Random Glucose (60-115) mg/dL Lactic Acid (0.5-2.0) mmol/L Calcium (8.4-10.2) mg/dL Magnesium (1.6-2.6) mg/dL Total Bilirubin (0.0-1.0) mg/dL Direct Bilirubin (0.0-0.5) mg/dL AST (5-37) U/L ALT (0-40) U/L Alkaline Phosphatase (39-117) U/L Ammonia (13-55) umol/L Troponin I High Sens (<3.5-35.0) ng/L B-Natriuretic Peptide (<100) pg/mL Total Protein (6.5-8.0) g/dL Albumin (3.5-5.0) g/dL Lipase (8-78) U/L TSH (0.32-4.0) uIU/mL Free T4 (0.71-1.85) ng/dL COVID-19 (CIARRA) Negative (Negative) COVID-19 Clin Com See Note Influenza Type A (RADHA) (Negative) Influenza Type B (RADHA) (Negative) Influenza A & B Note Blood Type A Positive Antibody Screen NEGATIVE Critical Care Time Critical Care Time Critical Care Time: Yes Total Critical Care Time: 60 Attestation: I have personally provided critical care time. Time includes review of lab data, radiology results, discussion with consultants, and monitoring for potential decompensation. Intervention performed as documented. Discharge Plan Discharge Clinical Impression: Hepatic carcinoma, Acute hyperkalemia, Acute renal failure Patient Disposition: Admitted As Inpatient Prescriptions: No Action atorvastatin 10 mg tablet 10 mg PO DAILY lisinopril 10 mg tablet 10 mg PO DAILY
[2023-10-15 15:38] LABS: MANUAL DIFF FLAG NO
[2023-10-15 15:51] LABS: Ammonia 97 umol/L (13-55)
[2023-10-15 15:51] LABS: INTERNATIONAL NORM RATIO 1.3 (0.9-1.1); Prothrombin Time 15.8 SEC (11.1-13.3)
[2023-10-15 15:53] LABS: Partial Thromboplastin Time 48.1 SEC (26.0-36.8)
[2023-10-15 15:57] LABS: Basophils Percent Auto 0.1 % (0-2); Eosinophils Percent Auto 0.1 % (0-4); Hemoglobin 17.3 g/dl (14.0-18.0); Imm Gran Abs Auto 0.04 X10*3/uL (0.00-0.03); Imm Gran Pct Auto 0.4 % (0.0-0.4); Lymphocytes Absolute Auto 0.5 X10*3/uL (1.2-4.9); Lymphocytes Percent Auto 5.1 % (20-40); Mean Corpuscular HGB Conc 35.3 g/dl (31.0-36.0); Mean Corpuscular Hemoglobin 29.2 pg (27.0-33.0); Mean Corpuscular Volume 82.6 fL (80.0-98.0); Mean Platelet Volume 9.9 fL (9.4-12.4); Monocytes Absolute Auto 0.5 X10*3/uL (0.1-1.2); Monocytes Percent Auto 4.5 % (2-11); Neutrophils Absolute Auto 8.9 x10*3/uL (2.0-8.3); Neutrophils Percent Auto 89.8 % (45-73); Platelet Count 216 X10*3/uL (160-400); Red Blood Count 5.93 X10*6/uL (4.60-5.80); Red Cell Distribution Width 21.7 % (11.0-16.0); White Blood Count 9.9 X10*3/uL (4.8-10.8)
[2023-10-15 16:04] LABS: Alanine Aminotransferase 50 U/L (0-40); Albumin Level 2.2 g/dL (3.5-5.0); Alkaline Phosphatase 542 U/L (39-117); Anion Gap 25 (12-20); Aspartate Amino Transferase 76 U/L (5-37); Bilirubin Direct 1.3 mg/dL (0.0-0.5); Blood Urea Nitrogen > 125 mg/dL (9-16); Calcium 8.8 mg/dL (8.4-10.2); Carbon Dioxide 10 mmol/L (22-29); Chloride 106 mmol/L (96-108); Creatinine Clr Calc Pharmacy 7.6; Estimated Glomerular Filt Rate 5; Glucose Random 102 mg/dL (60-115); Lipase 46 U/L (8-78); Magnesium 3.9 mg/dL (1.6-2.6); Potassium 6.3 mmol/L (3.3-5.1); Sodium 135 mmol/L (135-145); Total Protein 6.6 g/dL (6.5-8.0)
[2023-10-15 16:05] LABS: Lactic Acid 2.9 mmol/L (0.5-2.0)
[2023-10-15 16:06] LABS: B Type Natriuretic Peptide 73 pg/mL (<100)
[2023-10-15 16:11] LABS: IDNOW Serial# 152EDE1D; Influenza A Negative (Negative); Influenza B2 Negative (Negative)
[2023-10-15 16:11] LABS: COVID-19 Test Negative (Negative); IDNOW Serial# 08D9AD1C
[2023-10-15 16:21] LABS: TSH reflex Free T4 4.11 uIU/mL (0.32-4.0)
[2023-10-15 16:59] LABS: Free T4 (Free Thyroxine) 0.81 ng/dL (0.71-1.85)
[2023-10-15 17:35] LABS: Reflex Lactate? Lactic Acid Added
--- NOTE | 2023-10-15 19:27 | PC.NURSE ---
late entry: assumed care of pt around 1500. pt appears tremulous and pale, denies any pain. pt recently diagnosed with liver cancer. order put in for pt, however was waiting for family to meet with provider and CM about possible CAN INTAKE WORKER status. pt changed over to hospital attire. decision was made to place pt as CAN INTAKE WORKER. all orders/blood work/OBS/UA/fluids/non-pain medications discontinued per Dr. Smith. 22G IV placed to left hand by DIMITRI Duncan. plan for morphine drip for pain management. pt denies pain but family sts he is playing tough yuly . family at bedside, teary, aware of plan of care. pt provided with many warm blankets to keep warm, and water. awaiting bed assignment, pt resting comfortably juan c, no complaints juan c, plan of care ongoing.
[2023-10-15 19:55] VITALS: RESP 22
[2023-10-15] MEDS: Morphine Sulfate/NS 100 MG/100 ML PLAST..BAG IVCONT (19:55)
[2023-10-15] MEDS: Dextrose 5 % and 0.9 % NaCl 1,000 ML 80 ML IVCONT (20:00)
--- NOTE | 2023-10-15 20:00 | PC.NURSE ---
Assumed care of pt. Pt resting on stretcher, appears slightly restless, but denies any pain or other complaints. Started IV medication and fluids per orders, family at bedside and understanding of plan of care. Pending bed availability for admission.
--- NOTE | 2023-10-15 20:23 | MHC.CM.ED ---
CM met with patient's and son with Dr.. Smith in the family room to discuss plan of care. CM will complete a HCP with patient and provider will complete a MOLST with patient. after speaking with Dr. Smith, and son are requesting ENVIRONMENTAL AUDITOR only. ENVIRONMENTAL AUDITOR explained by provider and CM. Family in agreement. Aware that they can visit anytime. Aware that patient will be kept comfortable with medications and personal care. Aware that no active treatment for his cancer will be done. , Vicky ([phone]) tells CM that they were referred to [facility] and spoke with nurse there, who asked that she call them when her goes home. Family aware that CM will contact [facility] regarding ENVIRONMENTAL AUDITOR and possible GIP hospice in our facility. Family is unable to provide the care needed for patient to have hospice at home. Pt is sleepy, alert x3. In pain. Awaiting IV and morphine drip. Pt is jaundiced and is acutely ill. CM called [facility] and spoke with the information developer RN regarding patient admission to [facility] with ENVIRONMENTAL AUDITOR and need for hospice and possible GIP services. CM will place referral in Care Port. CM met with patient. HCP reviewed, completed and signed. Pt appears to have understanding of document and requests his to be his HCP. Copies given to . CM contact card given.MOLST was reviewed by MD and REUBEN. Pt requests DNR/DNI and Comfort measures only. Family will go home at this time. Pt has a room assignment. CM called and spoke with regarding room assignment. aware that family can visit anytime.
[2023-10-15 20:38] VITALS: RESP 18
--- NOTE | 2023-10-15 20:38 | PC.NURSE ---
Pt resting on stretcher, eyes closed, respirations even and unlabored at this time.
[2023-10-15 20:47] LABS: ~Lactic Acid-LAB USE ONLY 1.8 mmol/L (0.5-2.0)
[2023-10-16] VITALS: RESP 20
[2023-10-16] MEDS: Ondansetron ODT 4 MG TAB.RAPDIS TRANSLINGU (00:49)
--- NOTE | 2023-10-16 01:24 | PC.NURSE ---
Addendum entered by Waqas Myers RN 10/16/23 01:29: zofran given with desired effect. resting peacefully. no signs of distress. call arnold in reach. Addendum entered by Waqas Myers RN 10/16/23 01:26: Pt has been sleeping in room. arousable to voice, light touch. morphine CAPTAIN/AIRLINE PILOT running at 2mg/hr. RR 14. pt denies pain, anxiety, dyspnea. around 0000, does endorse nausea. able to tolerate SL Zofran. contacted and order changed to IV. Original Note: pt arrived in room around 2100. DIRECTOR OF CONTENT AND PROGRAMMING admission assessment complete. Pt denies pain, anxiety, nausea, discomfort, and dyspnea.
[2023-10-16 02:04] VITALS: RESP 10
--- NOTE | 2023-10-16 03:53 | P.HPHOSP_ITS ---
History of Present Illness Date of Service: 10/15/23 Attending physician on admission: Tl Velazquez Chief Complaint: Physical deterioration Peter Dalal is a 68 years old man with past medical history significant for advanced hepatocellular carcinoma was brought to the emergency department by his family members of he has been physically deteriorating unless active over the last several days. According to family has not been eating or drinking well. He has not been getting out of bed. Family also noted that his breathing has been past. The patient has been evaluated for this cancer [facility]. Several treatment options have been offered but unfortunately patient has been deteriorating family does not feel patient will benefit from it at this point. They expressed their wishes that are in the best interest of the patient and would like him to get comfort cares only. Despite the patient being quite he was unable to answer simple questions. He denied being in pain, shortness on breath or nauseous. In the ED, he was found to have. Blood workup is remarkable for hyperkalemia, low bicarb and marked renal failure. His LFTs are also elevated. ED tx: NS 2 L bolus, bicarb 50 mEq IV. Review of Systems 2 Review of Systems: Yes Unobtainable due to mental condition PMFSH Medical History History of simple renal cyst Hx of hepatic disease Hx of cirrhosis Hepatitis Elevated cholesterol HTN (hypertension) Surgical History Hx of appendectomy H/O colonoscopy Social History Patient Tobacco Use Status: Former Tobacco user Quit Date: 1 year ago Smoked in Last 30 Days: No Use of substances other than those prescribed or required for medical reasons: No Advance Directives: No Advance Directives Information Provided: Yes Meds Allergies Allergy/AdvReac Type Severity Reaction Status Date / Time No Known Allergies Allergy Verified 07/30/23 13:55 Active Medications: Current Medications Acetaminophen (Acetaminophen 325 Mg Tablet) 650 mg PO Q6H PRN PRN Reason: Pain, Mild (Pain Scale 1-3) Diazepam (Diazepam 10 Mg/2 Ml Cartridge) 2.5 mg IVPUSH Q8H PRN PRN Reason: anxiety Docusate Sodium (Docusate Sodium 100 Mg Capsule) 100 mg PO BEDTIME BENIGNO Last Admin: 10/15/23 20:15 Dose: Not Given Docusate Sodium (Docusate Sodium 100 Mg Capsule) 100 mg PO BEDTIME [facility] Haloperidol Lactate (Haloperidol Lactate 5 Mg/Ml Vial) 0.5 mg IVPUSH Q4H PRN PRN Reason: Delirium Morphine Sulfate (Morphine Sulfate/Ns) 100 mg in 100 mls @ 0 mls/hr IVCONT .Q0M [facility]; Protocol Last Admin: 10/15/23 19:55 Dose: 2 mg/hr, 2 mls/hr Dextrose/Sodium Chloride (D5ns) 1,000 mls @ 80 mls/hr IVCONT .[id number] [facility] Last Admin: 10/15/23 20:00 Dose: 80 mls/hr Melatonin (Melatonin 3 Mg Tablet) 6 mg PO BEDTIME PRN PRN Reason: Insomnia Ondansetron HCl (Ondansetron Odt 4 Mg Tab.Rapdis) 4 mg TRANSLINGU Q8H PRN PRN Reason: Nausea and Vomiting Last Admin: 10/16/23 00:49 Dose: 4 mg Ondansetron HCl (Ondansetron Odt 4 Mg Tab.Rapdis) 4 mg TRANSLINGU Q8H PRN PRN Reason: Nausea and Vomiting Ondansetron HCl (Ondansetron Hcl 4 Mg/2 Ml Vial) 4 mg IVPUSH Q4H PRN PRN Reason: Nausea and Vomiting Sodium Chloride (0.9 % Sodium Chloride Flush 3 Ml Syringe) 3 ml IVFLUSH QSHIFT [facility] Last Admin: 10/16/23 00:10 Dose: Not Given Physical Exam 2 Vital Signs and Narrative: Vital Signs: Last Vital Signs Temp 98.6 F 10/15/23 14:44 Pulse 84 10/15/23 14:44 Resp 10 L 10/16/23 02:04 BP 135/75 10/15/23 14:44 Pulse Ox 98 10/15/23 14:44 O2 Del Method Room Air 10/15/23 14:44 BMI result Body Mass Index 28.0 Constitutional - Lethargic but easy to arouse. Acutely ill. Cooperative. HEENT - Normocephalic. Atraumatic head. Heart - RRR Respiratory - Normal lung expansion, Normal respiratory effort, No respiratory distress, CTA bilaterally. Tachypnea. Abdomen - Abdomen is distended. (+) fluid wave. Nontenderness to palpation. - No CVA tenderness Extremities - no calf tenderness bilaterally, no swelling Musculoskeletal - Normal inspection, normal ROM Skin - Warm/Dry Neurological - Lethargic. No gross focal weakness noted. Answer simple questions Psychological - Calm. Results Labs 10/15/23 15:32 10/15/23 15:32 Labs: Laboratory Results - last 24 hr 10/15/23 10/15/23 10/15/23 15:30 15:31 15:32 MCV 82.6 MCH 29.2 MCHC 35.3 RDW 21.7 H Plt Count 216 MPV 9.9 Immature Gran % (Auto) 0.4 Neut % (Auto) 89.8 H Lymph % (Auto) 5.1 L Wilson % (Auto) 4.5 Eos % (Auto) 0.1 Baso % (Auto) 0.1 Lymph # (Auto) 0.5 L Wilson # (Auto) 0.5 Eos # (Auto) 0.0 Baso # (Auto) 0.0 Abs Immat Gran (auto) 0.04 H Absolute Neuts (auto) 8.9 H Absolute Nucleated RBC 0.000 Nucleated RBC % (auto) 0.0 PT 15.8 H INR 1.3 H APTT 48.1 H Anion Gap 25 H Estim Creat Clear Calc 7.6 Estimated GFR 5 Random Glucose 102 Lactic Acid 2.9 H* Lactic Acid F/U @ 2Hr Calcium 8.8 Magnesium 3.9 H* Total Bilirubin 2.0 H Direct Bilirubin 1.3 H AST 76 H ALT 50 H Alkaline Phosphatase 542 H Ammonia 97 H B-Natriuretic Peptide 73 Total Protein 6.6 Albumin 2.2 L Lipase 46 TSH 4.11 H Free T4 0.81 COVID-19 (CIARRA) COVID-19 Clin Com Influenza Type A (RADHA) Negative Influenza Type B (RADHA) Negative Influenza A & B Note See Note Blood Type Antibody Screen 10/15/23 10/15/23 15:33 20:29 MCV MCH MCHC RDW Plt Count MPV Immature Gran % (Auto) Neut % (Auto) Lymph % (Auto) Wilson % (Auto) Eos % (Auto) Baso % (Auto) Lymph # (Auto) Wilson # (Auto) Eos # (Auto) Baso # (Auto) Abs Immat Gran (auto) Absolute Neuts (auto) Absolute Nucleated RBC Nucleated RBC % (auto) PT INR APTT Anion Gap Estim Creat Clear Calc Estimated GFR Random Glucose Lactic Acid Lactic Acid F/U @ 2Hr 1.8 Calcium Magnesium Total Bilirubin Direct Bilirubin AST ALT Alkaline Phosphatase Ammonia B-Natriuretic Peptide Total Protein Albumin Lipase TSH Free T4 COVID-19 (CIARRA) Negative COVID-19 Clin Com See Note Influenza Type A (RADHA) Influenza Type B (RADHA) Influenza A & B Note Blood Type A Positive Antibody Screen NEGATIVE Assessment and Plan (1) Acute renal failure: Qualifiers: Acute renal failure type: unspecified Qualified Code(s): N17.9 - Acute kidney failure, unspecified Status: Acute (2) Acute hyperkalemia: Status: Acute (3) Hepatic carcinoma: Status: Acute Plan Peter Dalal is a 68 years old man with past medical history significant for advanced hepatocellular carcinoma lipidemia and hypertension admitted with: * Acute renal failure with hyperkalemia and severe metabolic acidosis. Plan: -LINING PRESSER. -Keep NPO. -IV fluids. -Continue morphine IV infusion (started in ED). -Symptomatic therapy as needed with diazepam, Zofran, Tylenol, hold and stool softeners. -To consider paracentesis for comfort measures only. Code status: DNR/DNI. Quality Stroke Does the patient have a stroke diagnosis?: No VTE Prior VTE?: No VTE Risk Level:: Medical - moderate - high VTE Device Contraindication: Treatment Not Indicated VTE Drug Contraindication: Treatment Not Indicated
[2023-10-16 08:00] VITALS: RESP 10
--- NOTE | 2023-10-16 09:09 | MHC.CM.PN ---
IMM 10/16. Pt lives at home with his , was self-care with no previous services. Pt on CANNERY WORKER at this time with dx hepatocellular cancer, pt on morphine gtt and has decreased alertness. This CM called pts /HCP Vicky at [phone] for CM intake assessment. Pt will be evaluated by [facility] for GIP eligibility today around 9:30am-10am. HCP and MOLST on file. DCP TBD pending hospice evaluation. PCP: Dr. Shubham Yates
--- NOTE | 2023-10-16 13:39 | MHC.CM.PN ---
Addendum entered by Stephanie Bennett 10/16/23 15:47: This CM spoke with pts Vicky, she and her son's feel having him go to a SNF will be best. They plan to come in this evening to speak with Peter about it. CM will follow up with Vicky tomorrow. Hospitalist updated. Original Note: [facility] hospice evaluated pt, they do not find pt to be appropriate for GIP level of hospice care. They did however find pt appropriate for routine level of hospice care at home. This CM called pts /HCP Vicky to relay this information to her and discuss D/C plan. Vicky would like to have her come home on hospice but is worried about doing it on her own. This CM provided information to Vicky about privately hired caregivers for him when he is at home. The option of hospice at a SNF was also discussed. Vicky was tearful and asked if this CM would call her son Oleg to discuss and see what he thinks. This CM spoke with pts son Oleg to discuss hospice services and options. Oleg is going to discuss this with his mother and requested that this CM call her in an hour to follow up.
--- NOTE | 2023-10-16 15:58 | P.PNIM_ITS ---
Subjective Subjective Date of Service: 10/16/23 Interval History: Admitted for comfort measures only Patient awake alert this morning denies pain, tossing and turning in bed not providing more history. At 17:00 patient is somnolent unable to obtain meaningful history and son at bedside. Review of Systems Unable to obtain due to mental status Physical Exam 2 Vital Signs: Vital Signs: Last Vital Signs Temp 98.6 F 10/15/23 14:44 Pulse 84 10/15/23 14:44 Resp 10 L 10/16/23 08:00 BP 135/75 10/15/23 14:44 Pulse Ox 98 10/15/23 14:44 O2 Del Method Room Air 10/15/23 14:44 BMI result Body Mass Index 28.0 Const: Other: General awake at a.m. later somnolent Neck no JVD. CVS regular rate rhythm, Respiratory lungs clear to auscultation, no respiratory distress, no wheeze, no rhonchi. Gastrointestinal abdomen soft, nontender, obese, bowel sounds audible,no guarding , no rigidity. Extremities no edema. Neuro moving all 4 extremity Skin no rash Objective Data Active Medications Acetaminophen (Acetaminophen 325 Mg Tablet) 650 mg PO Q6H PRN PRN Reason: Pain, Mild (Pain Scale 1-3) Diazepam (Diazepam 10 Mg/2 Ml Cartridge) 2.5 mg IVPUSH Q8H PRN PRN Reason: anxiety Haloperidol Lactate (Haloperidol Lactate 5 Mg/Ml Vial) 0.5 mg IVPUSH Q4H PRN PRN Reason: Delirium Morphine Sulfate (Morphine Sulfate/Ns) 100 mg in 100 mls @ 0 mls/hr IVCONT .Q0M [facility]; Protocol Last Admin: 10/15/23 19:55 Dose: 2 mg/hr, 2 mls/hr Documented By: KRISTI Melatonin (Melatonin 3 Mg Tablet) 6 mg PO BEDTIME PRN PRN Reason: Insomnia Ondansetron HCl (Ondansetron Odt 4 Mg Tab.Rapdis) 4 mg TRANSLINGU Q8H PRN PRN Reason: Nausea and Vomiting Ondansetron HCl (Ondansetron Hcl 4 Mg/2 Ml Vial) 4 mg IVPUSH Q4H PRN PRN Reason: Nausea and Vomiting Sodium Chloride (0.9 % Sodium Chloride Flush 3 Ml Syringe) 3 ml IVFLUSH QSHIFT [facility] Last Admin: 10/16/23 15:14 Dose: Not Given Documented By: JOON Non-Admin Reason: IV Running Labs 10/15/23 15:32 10/15/23 15:32 Labs: Laboratory Results - last 24 hr 10/15/23 10/15/23 10/15/23 15:31 15:32 15:33 MCV 82.6 MCH 29.2 MCHC 35.3 RDW 21.7 H Plt Count 216 MPV 9.9 Immature Gran % (Auto) 0.4 Neut % (Auto) 89.8 H Lymph % (Auto) 5.1 L [place] % (Auto) 4.5 Eos % (Auto) 0.1 Baso % (Auto) 0.1 Lymph # (Auto) 0.5 L [place] # (Auto) 0.5 Eos # (Auto) 0.0 Baso # (Auto) 0.0 Abs Immat Gran (auto) 0.04 H Absolute Neuts (auto) 8.9 H Absolute Nucleated RBC 0.000 Nucleated RBC % (auto) 0.0 Anion Gap 25 H Estim Creat Clear Calc 7.6 Estimated GFR 5 Random Glucose 102 Lactic Acid 2.9 H* Lactic Acid F/U @ 2Hr Calcium 8.8 Magnesium 3.9 H* Total Bilirubin 2.0 H Direct Bilirubin 1.3 H AST 76 H ALT 50 H Alkaline Phosphatase 542 H B-Natriuretic Peptide 73 Total Protein 6.6 Albumin 2.2 L Lipase 46 TSH 4.11 H Free T4 0.81 COVID-19 (CIARRA) Negative COVID-19 Clin Com See Note Influenza Type A (RADHA) Negative Influenza Type B (RADHA) Negative Influenza A & B Note See Note Blood Type A Positive Antibody Screen NEGATIVE 10/15/23 20:29 MCV MCH MCHC RDW Plt Count MPV Immature Gran % (Auto) Neut % (Auto) Lymph % (Auto) [place] % (Auto) Eos % (Auto) Baso % (Auto) Lymph # (Auto) [place] # (Auto) Eos # (Auto) Baso # (Auto) Abs Immat Gran (auto) Absolute Neuts (auto) Absolute Nucleated RBC Nucleated RBC % (auto) Anion Gap Estim Creat Clear Calc Estimated GFR Random Glucose Lactic Acid Lactic Acid F/U @ 2Hr 1.8 Calcium Magnesium Total Bilirubin Direct Bilirubin AST ALT Alkaline Phosphatase B-Natriuretic Peptide Total Protein Albumin Lipase TSH Free T4 COVID-19 (CIARRA) COVID-19 Clin Com Influenza Type A (RADHA) Influenza Type B (RADHA) Influenza A & B Note Blood Type Antibody Screen Assessment and Plan (1) Acute renal failure: Status: Acute (2) Acute hyperkalemia: Status: Acute (3) Hepatic carcinoma: Status: Acute Plan 68-year-old patient with past medical history of advanced hepatocellular carcinoma was brought to emergency room due to decline in physical condition, poor by mouth intake, patient follows at [facility] for cancer care, family feels patient will not benefit from treatment and requested comfort measures only. Hepatocellular carcinoma Was evaluated at [facility] and was scheduled to receive treatment at [facility] with Keytruda, but however in last couple days not feeling well with decreased by mouth intake unable to stand and ambulate. Spoke with patient's healthcare proxy Vicky Dalal and son they decided comfort measures only, due to poor physical condition and inability to tolerate chemotherapy With poor prognosis and now with acute kidney injury and hyperkalemia . patient unable to communicate in decision-making. Will DC IV morphine, place on as needed morphine/as needed diazepam Other diagnoses hepatic cirrhosis with esophageal varices and splenomegaly Hyperkalemia Acute kidney injury with anion gap metabolic acidosis Hyper magnesemia Disposition medical case worker would talk to family regarding hospice at home versus hospice at rehab facility Code status [employer] Patient need continued hospital stay for safe disposition. Quality Stroke Does the patient have a stroke diagnosis?: No VTE Prior VTE?: No VTE Risk Level:: Medical - moderate - high VTE Device Contraindication: Treatment Not Indicated VTE Drug Contraindication: Treatment Not Indicated
[2023-10-16 16:40] VITALS: RESP 8
[2023-10-16] MEDS: Morphine Sulfate 2 MG/ML CARTRIDGE IVPUSH (19:21)
[2023-10-16 23:55] VITALS: RESP 6
[2023-10-17 07:40] VITALS: RESP 12
--- NOTE | 2023-10-17 11:21 | MHC.CM.PN ---
CM spoke with pt.s /HCP, Evelyn, to ask what the plan is for care for pt. She said that she would like to bring him home, but cannot at this time, she would like him to go to a SNF for care, while she makes plans for care at home. Referrals out to [facility], aware that it will be private pay. hospice [facility] has accepted pt.
--- NOTE | 2023-10-17 13:13 | MHC.CM.PN ---
Family has made a plan to bring pt to son's home: Oleg Dalal [facility] aware and will coordinate DME with son anticipate DC on Friday, 10/20
--- NOTE | 2023-10-17 14:09 | HO.PM.IMPN ---
Subjective Subjective Date of Service: 10/17/23 Interval History: seen and examined this morning patient COUNTER INTELLIGENCE appears comfortable Physical Exam Vital Signs: Vital Signs: Last Vital Signs Temp 98.6 F 10/15/23 14:44 Pulse 84 10/15/23 14:44 Resp 12 10/17/23 07:40 BP 135/75 10/15/23 14:44 Pulse Ox 98 10/15/23 14:44 O2 Del Method Room Air 10/15/23 14:44 BMI result Body Mass Index 28.0 Const: Other: comfortable, NAD Objective Data Active Medications Acetaminophen (Acetaminophen 325 Mg Tablet) 650 mg PO Q6H PRN PRN Reason: Pain, Mild (Pain Scale 1-3) Diazepam (Diazepam 10 Mg/2 Ml Cartridge) 2.5 mg IVPUSH Q8H PRN PRN Reason: anxiety Haloperidol Lactate (Haloperidol Lactate 5 Mg/Ml Vial) 0.5 mg IVPUSH Q4H PRN PRN Reason: Delirium Melatonin (Melatonin 3 Mg Tablet) 6 mg PO BEDTIME PRN PRN Reason: Insomnia Morphine Sulfate (Morphine Sulfate 2 Mg/Ml Cartridge) 2 mg IVPUSH Q2H PRN; Protocol PRN Reason: Pain, Severe (Pain Scale 7-10) Last Admin: 10/16/23 19:21 Dose: 2 mg Documented By: JEANNE Ondansetron HCl (Ondansetron Odt 4 Mg Tab.Rapdis) 4 mg TRANSLINGU Q8H PRN PRN Reason: Nausea and Vomiting Ondansetron HCl (Ondansetron Hcl 4 Mg/2 Ml Vial) 4 mg IVPUSH Q4H PRN PRN Reason: Nausea and Vomiting Sodium Chloride (0.9 % Sodium Chloride Flush 3 Ml Syringe) 3 ml IVFLUSH [facility] Last Admin: 10/16/23 23:32 Dose: Not Given Documented By: NAHEED Non-Admin Reason: IV Running Labs 10/15/23 15:32 10/15/23 15:32 Microbiology Microbiology Results: Microbiology 10/15/23 15:42 Blood Culture - Preliminary Blood - Venous No growth after 24 hours. 10/15/23 15:32 Blood Culture - Preliminary Blood - Venous No growth after 24 hours. Assessment and Plan (1) Hepatic carcinoma: Status: Acute Plan 68-year-old patient with past medical history of advanced hepatocellular carcinoma was brought to emergency room due to decline in physical condition, poor by mouth intake and found to have severe NELSON and hyperkalemia. patient follows at [facility] for cancer care, family feels patient will not benefit from treatment and requested comfort measures only. Hepatocellular carcinoma Was evaluated at [facility] and was scheduled to receive treatment at [facility] with Keytruda, but however in last couple days not feeling well with decreased by mouth intake unable to stand and ambulate. Spoke with patient's healthcare proxy Vicky ferrari and son they decided comfort measures only, due to poor physical condition and inability to tolerate chemotherapy With poor prognosis and now with acute kidney injury and hyperkalemia . patient unable to communicate in decision-making. continue prn morphine/as needed diazepam Other diagnoses hepatic cirrhosis with esophageal varices and splenomegaly Hyperkalemia Acute kidney injury with anion gap metabolic acidosis Hyper magnesemia Disposition telehealth case manager would talk to family regarding hospice at home versus hospice at rehab facility- family prefers to take home when medical supplies have been delivered. Code status COUNTER INTELLIGENCE Patient need continued hospital stay for safe disposition. Quality Stroke Does the patient have a stroke diagnosis?: No VTE Prior VTE?: No VTE Risk Level:: Medical - moderate - high VTE Device Contraindication: Treatment Not Indicated VTE Drug Contraindication: Treatment Not Indicated
[2023-10-17 15:47] VITALS: RESP 14
--- NOTE | 2023-10-18 06:30 | PM.EVENT ---
Event Note Date of Service: 10/18/23 Event Note: note: I was called to patient's bedside to pronounce the patient has . No spontaneous movements were present. There was not respond to verbal or tactile stimuli. Pupils were mid-dilated and fixed. No breath sounds were appreciated over either lung field. No carotid pulses were palpable. No heart sounds were auscultated over entire precordium. Patient pronounced at October 18, 2023 at 12:47 AM. was notified. Condolences to the family's were provided. Time Spent With Patient Time: Total time managing care of this patient today ____ minutes.
--- NOTE | 2023-10-18 07:13 | P.DN_ITS ---
Discharge Sum: Prov Provider Primary care physician: Shubham Yates MD Consults: 10/15/23 15:00 Consult to Case Management Routine Comment: 10/15/23 19:55 Consult to Case Management Routine Comment: Consult to Hospice Routine Comment: Discharge Sum: Diag Contributing Factors (1) Hepatic carcinoma: (2) Acute hyperkalemia: (3) Acute renal failure: Discharge Sum: Summary Date and Time Date of admission: 10/15/23 19:54 Summary Details: Peter Dalal is a 68 years old man with past medical history significant for advanced hepatocellular carcinoma was brought to the emergency department by his family members of he has been physically deteriorating unless active over the last several days. According to family has not been eating or drinking well. He has not been getting out of bed. Family also noted that his breathing has been past. The patient has been evaluated for this cancer [facility]. Several treatment options have been offered but unfortunately patient has been deteriorating family does not feel patient will benefit from it at this point. They expressed their wishes that are in the best interest of the patient and would like him to get comfort cares only. Despite the patient being quite he was unable to answer simple questions. He denied being in pain, shortness on breath or nauseous. In the ED, he was found to have. Blood workup is remarkable for hyperkalemia, low bicarb and marked renal failure. His LFTs are also elevated. ED tx: NS 2 L bolus, bicarb 50 mEq IV. 68-year-old patient with past medical history of advanced hepatocellular carcinoma was brought to emergency room due to decline in physical condition, poor by mouth intake and found to have severe NELSON and hyperkalemia. patient follows at [facility] for cancer care, family feels patient will not benefit from treatment and requested comfort measures only. Hepatocellular carcinoma Was evaluated at [facility] and was scheduled to receive treatment at [facility] with Keytruda, but however in last couple days not feeling well with decreased by mouth intake unable to stand and ambulate. found to have severe renal failure, metabolic acidosis and hyperkalemia in the emergency room. After talking with family, the patient was admitted as comfort measures only, due to poor physical condition and inability to tolerate chemotherapy with poor prognosis and now with acute kidney injury and hyperkalemia. patient was unable to communicate in decision-making. he was treated with prn morphine. He passed peacefully and was pronounced 10/18 at 12:47 am. Other diagnoses hepatic cirrhosis with esophageal varices and splenomegaly Hyperkalemia Acute kidney injury with anion gap metabolic acidosis Hypermagnesemia HTN HLD Additional Data Attending physician: JORGE Bond
== END 2023-10-18 04:13 | disposition expired | DRG 951 ==
LOC: HO.ED 18:56 → HO.EDOVER 19:58 → HO.IMC 20:04
PROVIDERS: Admitting Provider Internal Medicine; Emergency Provider Emergency Medicine; PCP Internal Medicine; Visit Provider Physician Assistant Medical
DX: Z51.5 Encounter for palliative care (principal); N17.9 Acute kidney failure, unspecified; C22.0 Liver cell carcinoma; I85.10 Secondary esophageal varices without bleeding; E87.20 Acidosis, unspecified; K62.5 Hemorrhage of anus and rectum; I10 Essential (primary) hypertension; E78.5 Hyperlipidemia, unspecified; E83.42 Hypomagnesemia; D73.2 Chronic congestive splenomegaly; E78.00 Pure hypercholesterolemia, unspecified; E87.5 Hyperkalemia; K74.60 Unspecified cirrhosis of liver; Z20.822 Contact with and (suspected) exposure to COVID-19
CPT/HCPCS: 36415; 80048; 80076; 82140; 83605; 83690; 83735; 83880; 84439; 84443; 84484; 85025; 85610; 85730; 86850; 86900; 86901; 87040; 87502; 87635; 93005; 99285; 99499; J2270

== ENCOUNTER → 2023-10-15 14:49 | Outpatient (BNV) | payer MEDICARE, SELFPAY | PROVIDERS: Admitting Provider Internal Medicine; Emergency Provider Emergency Medicine; Visit Provider Internal Medicine | DX: M62.81 Muscle weakness (generalized) (principal); R94.31 Abnormal electrocardiogram [ECG] [EKG] | CPT/HCPCS: 93010 ==

== ENCOUNTER → 2023-10-15 19:54 | Outpatient (BNV) | payer MEDICARE, SELFPAY | PROVIDERS: Admitting Provider Internal Medicine; Emergency Provider Emergency Medicine; Visit Provider Internal Medicine | DX: N17.9 Acute kidney failure, unspecified (principal); C22.0 Liver cell carcinoma; E87.5 Hyperkalemia | CPT/HCPCS: 99223; 99231; 99238; 99499 ==